=== PATIENT | male | born 1985 | race Caucasian/White ===

== ENCOUNTER 2016-10-05 19:58 | Emergency (ER) | payer MEDICAID ==
--- NOTE | 2016-10-05 21:38 | ER PHYSICIAN DOCUMENTATION ---
Physician Documentation [facility] Name:Elliot Bowman Age:31 yrs Sex:Male :1985 Arrival Date:10/05/2016 Time:19:58 Bed6 Private MD:Marcelino Izaguirre EDBernadine Jabari Disposition: 10/05 22:00 Chart complete. tl1 Disposition: 10/05/16 20:32 Discharged to Home/Self Care. Impression: Foot Contusion. - Condition is Undetermined. - Discharge Instructions: CONTUSION, Foot. - Medical Reconciliation form form. - Follow up: Marcelino Izaguirre MD; When: 1 week; Reason: Recheck today's complaints, Continuance of care. - Problem is new. - Symptoms are resolved. HPI: 20:05 This 31 yrs old Male presents to ER with complaints of Foot Injury - RIGHT. tl1 20:32 2 nights ago he was practicing kick boxing and repeatedly kicked some pads with his tl1 feet. He had no pain at the time and cannot recall any specific injury. Over the last 2 days he has had progressive pain, swelling and bruising of his right dorsal foot. No other complaints.. Historical: - Allergies: No known drug Allergies; PENICILLINS; - Home Meds: 1. None 2. Prozac 20 mg oral cap 1 cap once daily 3. Clonazepam Oral - PMHx: None; ANXIETY; DEPRESSION; Anterior Epistaxis (July 23, 2015); - PSHx: NONE; - Tetanus: < 10 years. - Immunization history: Pneumococcal vaccine status is unknown. - Ebola Screening: : No symptoms or risks identified at this time. . - Social history: Smoking status: Patient uses tobacco products, current some day smoker. ROS: 20:35 MS/extremity: Positive for injury or acute deformity, contusion, of the dorsum of right tl1 foot. 20:35 All other systems are negative. Exam: 20:35 Constitutional: This is a well developed, well nourished patient who is awake, alert, tl1 and in no acute distress. 20:35 Cardiovascular: Rate: normal. 20:35 Respiratory: Respirations: normal. 20:35 Musculoskeletal/extremity: Right foot mid to distal dorsum is moderately swollen with ecchymosis distally including the proximal 2nd, 3rd, and 4th toes, with TTP in those areas. No pain with axial compression or distraction of the toes. TMT joints are not tender. Distal sensation to light touch is normal and he has normal cap refill.. 20:35 Neuro: Exam negative for acute changes. Vital Signs: 20:05 BP 127 / 85; Pulse 84; Resp 17; Temp 98.4; Pulse Ox 95% ; Weight 75.75 kg; Height 5 ft. mk4 11 in. (180.34 cm); Pain 4/10; 21:29 BP 123 / 80; Pulse 84; Resp 16; Pulse Ox 98% on R/A; Pain 4/10; mk4 20:05 Body Mass Index 23.29 (75.75 kg, 180.34 cm) mk4 MDM: 20:11 Patient medically screened. tl1 20:39 Differential diagnosis: fracture, sprain, contusion. Data reviewed: vital signs, nurses tl1 notes, radiologic studies, plain films, and as a result, I will discharge patient. Counseling: I had a detailed discussion with the patient and/or guardian regarding: the historical points, exam findings, and any diagnostic results supporting the discharge/admit diagnosis, radiology results, the need for outpatient follow up, to return to the emergency department if symptoms worsen or persist or if there are any questions or concerns that arise at home. Physician consultation: Marcelino Izaguirre MD was called at 20:30, was contacted at 20:30, regarding patient's condition, outpatient follow-up, next week, and will see patient in office, next week. ED course: cast shoe and crutches provided. . Dispensed Medications: No medications were administered Signatures: Lisset Newman 4 Jabari Colindres MD MD tl1
--- NOTE | 2016-10-05 21:38 | ER NURSING DOCUMENTATION ---
Nurse's Notes [facility] Name:Elliot Bowman Age:31 yrs Sex:Male :1985 Arrival Date:10/05/2016 Time:19:58 Bed6 Private MD:Marcelino Izaguirre Diagnosis:Foot Contusion Presentation: 10/05 20:05 Presenting complaint: Patient states: Right foot pain x 3 days. Pt. does " kick boxing mk4 " and thinks it is form repetitive motion. Slight redness and edema present. Transition of care: Home. 20:05 Method Of Arrival: Walk In 4 20:05 Acuity: PATTI 4 mk4 Triage Assessment: 20:05 General: Appears in no apparent distress, Behavior is cooperative. Pain: Complains of mk4 pain in medial aspect of right foot Pain does not radiate. Pain began 2-3 days ago Is intermittent Alleviated by rest. EENT: No deficits noted. Neuro: No deficits noted. Cardiovascular: Chest pain is denied. Respiratory: Airway is patent. GI: No deficits noted. : No deficits noted. Derm: No deficits noted. Musculoskeletal: Circulation, motion, and sensation intact Capillary refill < 3 seconds Range of motion limited in right ankle Swelling present in medial aspect of right foot. Injury Description: Denies injury. Historical: - Allergies: No known drug Allergies; PENICILLINS; - Home Meds: 1. None 2. Prozac 20 mg oral cap 1 cap once daily 3. Clonazepam Oral - PMHx: None; ANXIETY; DEPRESSION; Anterior Epistaxis (July 23, 2015); - PSHx: NONE; - Tetanus: < 10 years. - Immunization history: Pneumococcal vaccine status is unknown. - Ebola Screening: : No symptoms or risks identified at this time. . - Social history: Smoking status: Patient uses tobacco products, current some day smoker. Screenin:05 Infectious Disease Risk None. Abuse screen: denies. Nutritional screening: No deficits mk4 noted. Assessment: 20:05 See Triage Assessment done by same RN. [facility] Vital Signs: 20:05 BP 127 / 85; Pulse 84; Resp 17; Temp 98.4; Pulse Ox 95% ; Weight 75.75 kg; Height 5 ft. mk4 11 in. (180.34 cm); Pain 4/10; 21:29 BP 123 / 80; Pulse 84; Resp 16; Pulse Ox 98% on R/A; Pain 4/10; mk4 20:05 Body Mass Index 23.29 (75.75 kg, 180.34 cm) [facility] ED Course: 19:59 Patient arrived in ED. ma1 19:59 Marcelino Izaguirre MD is Private Physician. ma1 20:05 Allergy Band Placed Arm band placed on Bed in low position Call Light in Reach. X-ray 4 ordered. 20:05 Valuables Remains with patient. 4 20:11 Lisset Newman is Primary Nurse. 4 20:11 Jabari Colindres MD is Attending Physician. tl1 20:17 Port Xray Completed. 20:23 Marcelino Izaguirre MD is Referral Physician. tl1 21:21 Triage completed. 4 21:28 Crutch training done. Walking boot applied. 4 Administered Medications: No medications were administered Outcome: 20:32 Discharge ordered by MD. tl1 21:29 Discharged to home [facility] 21:29 Condition: good 21:29 Discharge Assessment: Patient awake, alert and oriented x 3. No cognitive and/or functional deficits noted. Patient verbalized understanding of disposition instructions. 21:29 Discharge instructions given to patient, Instructed on crutch walking, discharge instructions, follow up and referral plans. Demonstrated understanding of 21:38 Patient left the ED. [facility] Signatures: Lisset Newman [facility] Jabari Colindres MD MD tl1 Roxana Hennessy Breonna Graham [facility]
== END 2016-10-05 21:38 | disposition home or self-care (01) ==
LOC: ER 19:58
DX: S90.31XA Contusion of right foot, initial encounter (principal); W22.8XXA Striking against or struck by other objects, initial encounter; Y92.318 Other athletic court as the place of occurrence of the external cause; Y93.75 Activity, martial arts; Z79.899 Other long term (current) drug therapy
CPT/HCPCS: 99283